=== PATIENT | female | born 1985 | race Caucasian/White ===

== ENCOUNTER 2018-02-21 08:49 | Outpatient (CLI) | payer MEDICAID | END 2018-02-21 11:31 | disposition home or self-care (01) | LOC: OBT 08:49 → L-D 08:49 → OBT 11:31 | DX: O36.8130 Decreased fetal movements, third trimester, not applicable or unspecified (principal); Z3A.39 39 weeks gestation of pregnancy | CPT/HCPCS: 76818 ==

== ENCOUNTER 2018-02-28 08:22 | Outpatient (CLI) | payer MEDICAID | END 2018-02-28 10:30 | disposition home or self-care (01) | LOC: OBT 08:22 → L-D 08:22 → OBT 10:30 | DX: O48.0 Post-term pregnancy (principal); Z3A.40 40 weeks gestation of pregnancy | CPT/HCPCS: 76815; 76818 ==

== ENCOUNTER 2018-03-02 16:56 | Inpatient (IN) | payer MEDICAID ==
[2018-03-02] MEDS ORDERED: IBUPROFEN 600 MG TAB PO (21:00)
[2018-03-02] MEDS ORDERED: OXYTOCIN 30 UNITS/LR 500 ML IV (21:00)
[2018-03-02] MEDS ORDERED: METHYLERGONOVINE 0.2 MG INJ IM (21:00)
[2018-03-02] MEDS ORDERED: BUTORPHANOL 2 MG INJ IV (21:00)
[2018-03-02] MEDS ORDERED: LIDOCAINE 1% (MPF) 30 ML INJ INJ (21:00)
[2018-03-02] MEDS ORDERED: MISOPROSTOL 200 MCG TAB PR (21:00)
[2018-03-02] MEDS ORDERED: CARBOPROST 250 MCG INJ IM (21:00)
[2018-03-02] MEDS ORDERED: MINERAL OIL LIGHT 10 ML VIAL TOP (21:00)
[2018-03-02 21:07] LABS: ADD MAN DIFF? NO
[2018-03-02 21:09] LABS: WHITE BLOOD COUNT 8.9 10^3/ul (4.8-10.8)
[2018-03-02 21:09] LABS: BASOPHILS % 0.3 % (0.0-2.0); EOSINOPHILS # 0.1 10^3/ul (0.0-0.5); EOSINOPHILS % 0.9 % (0.0-7.0); HEMATOCRIT 33.6 % (37.0-47.0); HEMOGLOBIN 11.1 g/dl (12.0-16.0); LYMPHOCYTES # 1.2 10^3/ul (0.8-2.9); LYMPHOCYTES % 13.7 % (15.0-51.0); MEAN CORPUSCULAR HEMOGLOBIN 29.8 pg (29.0-33.0); MEAN CORPUSCULAR VOLUME 90.3 fl (82.0-101.0); MEAN PLATELET VOLUME 8.7 fl (7.4-10.4); MONOCYTE # 0.7 10^3/ul (0.3-0.9); MONOCYTES % 7.6 % (0.0-11.0); NEUTROPHIL # 6.8 10^3/ul (1.6-7.5); NEUTROPHILS % 76.6 % (39.0-77.0); PLATELET COUNT 207 10^3/UL (140-415); RED BLOOD COUNT 3.72 10^6/ul (4.20-5.40)
[2018-03-02] MEDS: LACTATED RINGER'S 1,000 ML IV* (21:23)
[2018-03-02] MEDS: AMPICILLIN 2 GM/NS (PMX) 100 ML IV (21:23)
[2018-03-02 21:28] LABS: INR 0.93; PARTIAL THROMBOPLASTIN TIME 26.7 Sec (25.0-35.0); PROTIME 12.5 Sec (11.9-14.9)
[2018-03-02 22:04] LABS: HEPATITIS B SURFACE ANTIGEN NEGATIVE (NEGATIVE)
[2018-03-02 22:14] LABS: HIV 1&2 ANTIBODY NEGATIVE (NEGATIVE)
[2018-03-03] MEDS: AMPICILLIN 1 GM/NS (PMX) 50 ML IV ×2 (02:00→05:35)
[2018-03-03] MEDS: ACETAMINOPHEN 325 MG TAB PO (02:10)
[2018-03-03] MEDS: LACTATED RINGER'S 1,000 ML IV* ×4 (07:00→18:56)
[2018-03-03] MEDS: OXYTOCIN 30 UNITS/LR 500 ML IV ×3 (13:49→21:42)
[2018-03-03] MEDS ORDERED: OXYTOCIN 30 UNITS/LR 500 ML IV (14:00)
[2018-03-03] MEDS ORDERED: FENTAnyl 2MCG/ML-ROPIV 0.2% 100 ML (17:01)
[2018-03-03] MEDS ORDERED: FENTAnyl 2MCG/ML-ROPIV 0.2% 100 ML BAG EPI (18:00)
[2018-03-03] MEDS ORDERED: NALOXONE (0.4 MG/ML) INJ IV (18:00)
[2018-03-03 20:41] LABS: RAPID PLASMA REAGIN NONREACTIVE (NR)
[2018-03-03] MEDS: MINERAL OIL LIGHT 10 ML VIAL TOP (21:43)
[2018-03-04] MEDS ORDERED: METHYLERGONOVINE 0.2 MG INJ IM
[2018-03-04] MEDS ORDERED: OXYTOCIN 30 UNITS/LR 500 ML IV
[2018-03-04] MEDS ORDERED: CARBOPROST 250 MCG INJ IM
[2018-03-04] MEDS ORDERED: DIBUCAINE 1% 30 GM OINT PR
[2018-03-04] MEDS ORDERED: ZOLPIDEM 5 MG TAB PO
[2018-03-04] MEDS ORDERED: MISOPROSTOL 200 MCG TAB PR
[2018-03-04] MEDS: BENZOCAINE 20% 56 ML SPRAY TOP (00:27)
[2018-03-04] MEDS: IBUPROFEN 600 MG TAB PO ×5 (00:27→23:14)
[2018-03-04] MEDS: WITCH HAZEL/GLYCERIN PAD PR (00:27)
[2018-03-04] MEDS: CEPHALEXIN 500 MG CAP PO ×4 (00:27→18:00)
[2018-03-04] MEDS: LANOLIN 7 GM TUBE TOP (00:28)
[2018-03-04] MEDS: LACTATED RINGER'S 1,000 ML IV* ×3 (01:31→15:40)
[2018-03-04] MEDS: SENNA/DOCUSATE NA (8.6MG/50MG) TAB PO ×2 (09:00→21:23)
[2018-03-04] MEDS: HYDROCODONE/APAP (5/325) TAB PO ×2 (09:01→14:15)
[2018-03-04] MEDS: MAGNESIUM HYDROXIDE 30ML CUP PO ×2 (09:01→21:23)
[2018-03-04 10:01] LABS: ADD MAN DIFF? NO
[2018-03-04 10:05] LABS: BASOPHILS % 0.4 % (0.0-2.0); EOSINOPHILS # 0.1 10^3/ul (0.0-0.5); EOSINOPHILS % 0.9 % (0.0-7.0); HEMATOCRIT 32.1 % (37.0-47.0); HEMOGLOBIN 10.4 g/dl (12.0-16.0); LYMPHOCYTES # 1.5 10^3/ul (0.8-2.9); LYMPHOCYTES % 14.6 % (15.0-51.0); MEAN CORPUSCULAR HGB CONC 32.4 g/dl (32.0-37.0); MEAN CORPUSCULAR VOLUME 92.5 fl (82.0-101.0); MONOCYTES % 10.1 % (0.0-11.0); NEUTROPHIL # 7.3 10^3/ul (1.6-7.5); NEUTROPHILS % 73.4 % (39.0-77.0); PLATELET COUNT 179 10^3/UL (140-415); RED BLOOD COUNT 3.47 10^6/ul (4.20-5.40); RED CELL DISTRIBUTION WIDTH 15.1 % (11.5-14.5)
[2018-03-04 10:05] LABS: WHITE BLOOD COUNT 9.9 10^3/ul (4.8-10.8)
[2018-03-04] MEDS: KETOROLAC 30 MG INJ IM (19:46)
[2018-03-05] MEDS: LACTATED RINGER'S 1,000 ML IV* ×2 (00:14→07:40)
[2018-03-05] MEDS: CEPHALEXIN 500 MG CAP PO ×3 (00:18→11:04)
[2018-03-05] MEDS: KETOROLAC 30 MG INJ IM ×2 (03:28→11:05)
[2018-03-05] MEDS: IBUPROFEN 600 MG TAB PO ×2 (05:26→11:27)
[2018-03-05] MEDS: HYDROCODONE/APAP (5/325) TAB PO (08:02)
[2018-03-05] MEDS: VARICELLA VACCINE LIVE/PF 1,350 UNIT/0.5 ML ML SC* (09:00)
[2018-03-05] MEDS: MEASLES,MUMPS,RUBELLA VACCINE INJ SC* (09:00)
[2018-03-05] MEDS: DIPHTH/TET/ACEL PERTUSS (ADULT) 0.5 ML VIAL IM* (09:00)
[2018-03-05] MEDS: SENNA/DOCUSATE NA (8.6MG/50MG) TAB PO (09:55)
[2018-03-05] MEDS: MAGNESIUM HYDROXIDE 30ML CUP PO (09:55)
== END 2018-03-05 16:03 | disposition home or self-care (01) | DRG 775 ==
LOC: OBT 16:56 → PP1 03-03 23:36 → L-D 17:00 → OBT 18:18 → L-D 18:12
PROVIDERS: Obstetrics & Gynecology
PROC: 10E0XZZ Delivery of Products of Conception, External Approach (ICD-10-PCS; principal; 2018-03-03)
PROC: 0HQ9XZZ Repair Perineum Skin, External Approach (ICD-10-PCS; 2018-03-03)
DX: O70.0 First degree perineal laceration during delivery (principal); Z3A.40 40 weeks gestation of pregnancy; Z37.0 Single live birth
CPT/HCPCS: 62319; 85025; 85610; 85730; 86592; 86703; 86900; 86901; 87340

== ENCOUNTER 2018-04-02 18:27 | Emergency (ER) | payer MEDICAID ==
[2018-04-02 20:48] LABS: ADD MAN DIFF? NO
[2018-04-02] MEDS: KETOROLAC 30 MG INJ IV (20:48)
[2018-04-02] MEDS: DIPHENHYDRAMINE 50 MG INJ IV (20:49)
[2018-04-02] MEDS: METOCLOPRAMIDE 10 MG INJ IV (20:49)
[2018-04-02] MEDS: SOD CHLORIDE 0.9% 1,000 ML IV (20:49)
[2018-04-02 20:57] LABS: BASOPHIL # 0.1 10^3/ul (0.0-0.1); BASOPHILS % 0.6 % (0.0-2.0); EOSINOPHILS # 0.1 10^3/ul (0.0-0.5); EOSINOPHILS % 1.6 % (0.0-7.0); HEMATOCRIT 42.1 % (37.0-47.0); HEMOGLOBIN 13.5 g/dl (12.0-16.0); LYMPHOCYTES # 2.2 10^3/ul (0.8-2.9); MEAN CORPUSCULAR HEMOGLOBIN 28.5 pg (29.0-33.0); MEAN CORPUSCULAR HGB CONC 32.1 g/dl (32.0-37.0); MEAN CORPUSCULAR VOLUME 88.8 fl (82.0-101.0); MEAN PLATELET VOLUME 9.4 fl (7.4-10.4); MONOCYTE # 0.6 10^3/ul (0.3-0.9); MONOCYTES % 6.4 % (0.0-11.0); NEUTROPHILS % 67.1 % (39.0-77.0); PLATELET COUNT 248 10^3/UL (140-415); RED BLOOD COUNT 4.74 10^6/ul (4.20-5.40); RED CELL DISTRIBUTION WIDTH 13.9 % (11.5-14.5)
[2018-04-02 20:57] LABS: WHITE BLOOD COUNT 8.9 10^3/ul (4.8-10.8)
[2018-04-02 21:17] LABS: INR 0.86; PARTIAL THROMBOPLASTIN TIME 27.6 Sec (25.0-35.0); PROTIME 11.8 Sec (11.9-14.9); PT RATIO 0.9
[2018-04-02 21:23] LABS: ANION GAP 12 (8-16); BLOOD UREA NITROGEN 13 mg/dl (7-20); CALCIUM 9.2 mg/dl (8.4-10.2); CARBON DIOXIDE 27 mmol/L (21-31); CHLORIDE 105 mmol/L (97-110); CREATININE 0.68 mg/dl (0.44-1.00); GLUCOSE 96 mg/dl (70-220); POTASSIUM 3.9 mmol/L (3.5-5.1); SODIUM 140 mmol/L (135-144)
== END 2018-04-02 23:36 | disposition home or self-care (01) ==
LOC: FTE 18:27
DX: O89.4 Spinal and epidural anesthesia-induced headache during the puerperium (principal); Z79.82 Long term (current) use of aspirin
CPT/HCPCS: 36415; 80048; 81025; 85025; 85610; 85730; 96361; 96374; 96375; 99284-25